=== PATIENT | female | born 1980 | race Caucasian/White ===

== ENCOUNTER 2023-05-29 12:45 | Emergency (ER) | payer BC, SELFPAY ==
[2023-05-29 12:46] VITALS: BP 161/124; PULSE 90; RESP 16; TEMP 36.3; O2SAT 97; BMI 37.9
--- NOTE | 2023-05-29 12:56 | RAD_ITS ---
STUDY: X-RAY - RIGHT THUMB REASON FOR EXAM: Female, 42 years old. pt states right distal thumb pain that radiates into hand from dog bite, puncture wound to distal anterior area of thumb TECHNIQUE: 3 view(s) of the finger were obtained. COMPARISON: None. FINDINGS: Normal metacarpal head. Normal metacarpophalangeal joint. Normal proximal phalanx. Normal middle phalanx. Normal distal phalanx. Normal proximal interphalangeal joint. Normal distal interphalangeal joint. Slight soft tissue swelling and irregularity near the IP joint of the thumb consistent with trauma to this region. No radiopaque foreign body or subcutaneous gas. RAD/Finger(s) Min 2 Views IMPRESSION: 1. Slight soft tissue swelling and irregularity near the IP joint of the thumb consistent with trauma to this region. Electronically Signed: Vito Lazar MD at 14:50 EDT ,
--- NOTE | 2023-05-29 13:05 | EX.ED.VISEXT ---
HPI <BERNABE Woodson - Last Filed: 05/29/23 15:40> History of Present Illness Chief Complaint: Bite Narrative Narrative: Patient presenting today with pain to her right thumb after her dog accidentally bit her this afternoon. She reports that they were at the vet putting the dog down and she went to pet him and he accidentally bit her. Her tetanus is not up-to-date. She denies any other injury. She is not on any blood thinners. ROS <BERNABE Woodson - Last Filed: 05/29/23 15:40> ROS ED Constitutional Constitutional ED: Denies chills or fever(s) Cardiovascular Cardiovascular: Denies chest pain or palpitations Respiratory/Chest Respiratory/Chest: Denies cough or dyspnea Gastrointestinal Gastrointestinal: Denies abdominal pain, nausea or vomiting Musculoskeletal Musculoskeletal: Denies arthralgias or myalgias Integumentary Reports laceration Neurologic Neurologic: Denies paresthesias or weakness PFSH <BERNABE Woodson - Last Filed: 05/29/23 15:40> PFSH Home Medications amoxicillin 875 mg-potassium clavulanate 125 mg tablet 1 tab PO BID 7 days #14 tabs 05/29/23 [Rx Last Taken Unknown] Social History Smoking Status: Never smoker EXAM <BERNABE Woodson - Last Filed: 05/29/23 15:40> Physical Exam Const Vital Signs: 05/29/23 12:46 Temperature 97.3 F L Temperature Source Temporal Pulse Rate 90 Respiratory Rate 16 Blood Pressure 161/124 H Blood Pressure Mean 136 Pulse Ox 97 Oxygen Delivery Method Room Air Positive well nourished, well developed and no apparent distress General Appearance ED: well developed HEENT Reports normocephalic and head/scalp atraumatic Mouth ED: Yes moist mucous membranes normal Eyes PERRL and EOMs intact bilaterally Neck full ROM and supple Chest Wall inspection of chest normal Resp normal respiratory effort and clear to auscultation bilaterally Cardio regular rate and regular rhythm GI soft to palpation, non-tender, non-distended and no masses Back/Spine normal ROM and normal to inspection Extremity full ROM Extremity Narrative: Right thumb has 3 linear superficial lacerations as well as a small puncture wound. Full flexion and extension of the IP and MCP joints. Neuro oriented x3, CN's II-XII intact bilaterally, moves all extremities, no focal motor deficits and no sensory deficits noted Sensorium / Orientation: awake and alert Psych mental status grossly normal and thought process normal Skin no rashes or lesions noted and no wounds <Dr. Rasta White DO - Last Filed: 05/29/23 17:02> Physical Exam Const Vital Signs: 05/29/23 12:46 Temperature 97.3 F L Temperature Source Temporal Pulse Rate 90 Respiratory Rate 16 Blood Pressure 161/124 H Blood Pressure Mean 136 Pulse Ox 97 Oxygen Delivery Method Room Air [facility] <BERNABE Woodson - Last Filed: 05/29/23 15:40> [facility] Narrative Medical decision making narrative: Patient presenting with a dog bite that occurred this afternoon while they were putting down their family dog and he accidentally bit her right thumb. She has 3 linear superficial lacerations to the thumb as well as a small puncture wound. Full flexion and extension to the thumb. Tetanus will be updated here, she will be started on Augmentin with first dose here. Hand will be soaked in soapy water and copiously cleaned. She reports concerns that a piece of the tooth could have broke off in her finger as she noticed that a piece of the dog's tooth was broken after he bit her. X-ray will be obtained to rule out foreign body and is negative. Patient was bandaged with bacitracin ointment. She has been educated on signs of infection to look out for and reasons to return. She is to follow-up with her PCP and will be discharged home in stable condition. She is comfortable with plan. Radiography X-Ray: Read by ED Physician and Read by Radiologist Diagnostic Testing: Clinical Impression(s) from Imaging Studies Finger X-Ray 05/29/23 12:56 IMPRESSION: 1. Slight soft tissue swelling and irregularity near the IP joint of the thumb consistent with trauma to this region. Electronically Signed: Vito Lazar MD at 14:50 EDT Reading Location ID and State: [facility] / [place] , Service support , <Dr. Rasta White DO - Last Filed: 05/29/23 17:02> [facility] Narrative Medical decision making narrative: Patient presenting with a dog bite that occurred this afternoon while they were putting down their family dog and he accidentally bit her right thumb. She has 3 linear superficial lacerations to the thumb as well as a small puncture wound. Full flexion and extension to the thumb. Tetanus will be updated here, she will be started on Augmentin with first dose here. Hand will be soaked in soapy water and copiously cleaned. She reports concerns that a piece of the tooth could have broke off in her finger as she noticed that a piece of the dog's tooth was broken after he bit her. X-ray will be obtained to rule out foreign body and is negative. Patient was bandaged with bacitracin ointment. She has been educated on signs of infection to look out for and reasons to return. She is to follow-up with her PCP and will be discharged home in stable condition. She is comfortable with plan. I, Dr White, have reviewed the above progress note and course of action in the ER; agree with the above. I have personally seen and evaluated this patient, gone over history and physical, and discussed disposition and treatment plan with the patient. Radiography Diagnostic Testing: Clinical Impression(s) from Imaging Studies Finger X-Ray 05/29/23 12:56 IMPRESSION: 1. Slight soft tissue swelling and irregularity near the IP joint of the thumb consistent with trauma to this region. Electronically Signed: Vito Lazar MD at 14:50 EDT Reading Location ID and State: [address] [place] [address] , Service support , Discharge Plan Triage Chief Complaint: Bite ED Midlevel Provider: Harika Hull ED Provider: Rasta White Dx/Rx/DC Orders Clinical Impression: Dog bite of finger Instructions: ED Dog Bite Prescriptions: New amoxicillin-pot clavulanate 875-125 mg tablet 1 tab PO BID 7 Days Qty: 14 0RF Primary Care Provider: Wade Leon Referrals: Town Doctor,Out of [Non-Staff] - Activity Restrictions/Additional Instructions: Take antibiotics as directed, follow-up with your PCP in 5 to 7 days. Please return for any signs of infection such as increased redness, swelling, or pus-like discharge from the wound. Disposition Disposition: Home, Self Care Discharge Date/Time: 05/29/23 15:04
[2023-05-29] MEDS: Diphth,Pertuss(Acell),Tet Vac 0.5 ML Vial IM (13:08)
[2023-05-29] MEDS: Amox/Clavulanate 875 MG Tablet PO (13:08)
== END 2023-05-29 15:04 | disposition home or self-care (01) ==
PROVIDERS: Emergency Provider Emergency Medicine; PCP Family Medicine; Visit Provider Emergency Medicine
DX: S61.051A Open bite of right thumb without damage to nail, initial encounter (principal); Z23 Encounter for immunization; W54.0XXA Bitten by dog, initial encounter; Y92.89 Other specified places as the place of occurrence of the external cause
CPT/HCPCS: 73140; 90471; 90715; 99283